=== PATIENT | female | born 1975 | race Caucasian/White ===

== ENCOUNTER 2017-08-28 06:22 | Day surgery (SDC) | payer OTHER ==
--- NOTE | 2017-08-28 06:38 | C.PDOC ---
History Of Present Illness pt presents with rlq , right pelvic pain worsening over the lst few days. No f/c /n/v. sharp, stabbing pain. Tolerating po Time Seen by Provider: 08/28/17 06:37 Chief Complaint (Nursing): Abdominal Pain History Per: Patient History/Exam Limitations: no limitations Onset/Duration Of Symptoms: Days Current Symptoms Are (Timing): Still Present Context: Other Severity: Moderate Pain Scale Rating Of: 4 Location Of Pain/Discomfort: RLQ, Suprapubic Radiation Of Pain To:: None Quality Of Discomfort: Sharp, Aching, Pressure Associated Symptoms: denies: Fever, Chills, Nausea Exacerbating Factors: Movement Alleviating Factors: None Last Bowel Movement: Yesterday Recent travel outside of the [place]: No Additional History Per: Patient Abnormal Vaginal Bleeding: No Past Medical History Reviewed: Historical Data, Nursing Documentation, Vital Signs - Medical History PMH: Denies: Chronic Kidney Disease Surgical History: No Surg Hx - [facility] INJECT/INFUSE NEC (02/22/14) SUTURE OF MOUTH LAC NEC (04/21/14) Family History: States: No Known Family Hx Review Of Systems Constitutional: Negative for: Fever, Chills ENT: Negative for: Throat Pain Cardiovascular: Negative for: Chest Pain Respiratory: Negative for: Shortness of Breath Gastrointestinal: Positive for: Abdominal Pain (rlq). Negative for: Nausea, Vomiting Genitourinary: Negative for: Vaginal Bleeding Musculoskeletal: Negative for: Back Pain Skin: Negative for: Rash Neurological: Negative for: Weakness Psych: Negative for: Anxiety Physical Exam - Physical Exam Appears: Non-toxic Skin: Warm, Dry Head: Normacephalic Eye(s): bilateral: Normal Inspection Oral Mucosa: Moist Throat: No Erythema Neck: Supple Chest: Symmetrical Cardiovascular: Rhythm Regular Respiratory: No Rales, No Rhonchi Gastrointestinal/Abdominal: Soft, Tenderness (rlq), No Guarding, No Rebound, Other (right suprapubic) Extremity: Normal ROM Extremity: Bilateral: Atraumatic Neurological/Psych: Oriented x3 Gait: Steady ED Course And Treatment O2 Sat by Pulse Oximetry: 99 Pulse Ox Interpretation: Normal Disposition Discussed With : Peter Art Comment: accepted the pt on her service and took over the care at 6:49AM Doctor Will See Patient In The: Hospital Counseled Patient/Family Regarding: Studies Performed, Diagnosis - Disposition Referrals: Peter Art MD [Primary Care Provider] - Disposition: HOSPITALIZED Disposition Time: 06:37 Condition: FAIR Forms: [facility] ([place]i) - POA Present On Arrival: None - Clinical Impression Clinical Impression: Abdominal pain in female patient, Pelvic pain Decision To Admit - Pt Status Changed To: Hospital Disposition Of: Inpatient - Admit Certification Admit to Inpatient:: After my assessment, the patient will require hospitalization for at least two midnights. This is because of the severity of symptoms shown, intensity of services needed, and/or the medical risk in this patient being treated as an outpatient. - InPatient: Physician Admission Certification:: After my assessment, the patient will require hospitalization for at least two midnights. This is because of the severity of symptoms shown, intensity of services needed, and/or the medical risk in this patient being treated as an outpatient. - . Bed Request Type: Regular Admitting Physician: Peter Art Patient Diagnosis: Abdominal pain in female patient, Pelvic pain
[2017-08-28] MEDS ORDERED: Sodium Chloride 0.9% 1,000 ML IV ONE (06:40)
[2017-08-28 06:56] LABS: SQUAMOUS EPITHIAL 2 /hpf (0-5); URINE BILIRUBIN NEGATIVE (NEGATIVE); URINE BLOOD NEGATIVE (NEGATIVE); URINE CLARITY Clear (Clear); URINE COLOR Yellow (YELLOW); URINE GLUCOSE (UA) NORMAL (Normal); URINE LEUKOCYTE ESTERASE NEG Leu/uL (Negative); URINE NITRATE NEGATIVE (NEGATIVE); URINE PROTEIN NEGATIVE (NEGATIVE)
[2017-08-28 07:15] LABS: BASO % 0.4 % (0.0-2.0); EOS # 0.1 K/uL (0.0-0.7); EOS % 1.2 % (0.0-4.0); HEMOGLOBIN 13.8 g/dL (11.0-16.0); LYMPH # 2.4 K/uL (1.0-4.3); LYMPH % 31.6 % (20.0-40.0); MEAN CELL VOLUME 93.3 fL (81.0-99.0); MEAN CORPUSCULAR HEMOGLOBIN 33.2 pg (27.0-31.0); MEAN CORPUSCULAR HGB CONC 35.6 g/dL (33.0-37.0); MEAN PLATELET VOLUME 8.2 fL (7.2-11.7); MONO # 0.5 K/uL (0.0-0.8); MONO % 6.2 % (0.0-10.0); NEUT # 4.7 K/uL (1.8-7.0); NEUT % 60.6 % (50.0-75.0); NRBC % 0.2 % (0.0-2.0); RBC 4.16 Mil/uL (3.80-5.20); RED CELL DISTRIBUTION WIDTH 12.2 % (11.5-14.5); WHITE BLOOD COUNT 7.8 K/uL (4.8-10.8)
[2017-08-28 07:17] LABS: PROTHROMBIN TIME 10.6 SECONDS (9.7-12.2)
[2017-08-28 07:17] LABS: HCG,QUALITATIVE URINE NEGATIVE (NEGATIVE)
[2017-08-28 07:29] LABS: ALB/GLOB RATIO 1.4 (1.0-2.1); ALBUMIN 4.3 g/dL (3.5-5.0); ALT/SGPT 23 U/L (9-52); AST/SGOT 30 U/L (14-36); BLOOD UREA NITROGEN 16 mg/dL (7-17); CALCIUM 9.4 mg/dl (8.6-10.4); GFR AFRICAN-AMERICAN > 60; GFR NON-AFRICAN AMERICAN > 60; LIPASE 110 U/L (23-300)
[2017-08-28] MEDS ORDERED: Sodium Chloride 0.9% 1,000 ML ONE (07:47)
[2017-08-28] MEDS ORDERED: cefOXitin IV 2 gm in Dextrose 2 GM/50 ML BAG IVPB ONE (08:14)
--- NOTE | 2017-08-28 08:21 | CP.PCM.HP ---
History of Present Illness - History of Present Illness History of Present Illness: History and Physical for Dr. Art CC: Abdominal pain HPI: 42 yo F with PMH of ovarian cysts who presents complaining of right sided pelvic pain. Pain first started 3 weeks ago, intermittent. Pain started again yesterday afternoon and has been constant, 9-10/10 in severity since the onset, sharp and stabbing in character. Pain radiates to back and epigastrum. She tried OTC analgesics which did not help. No particular exacerbating factors. She denies fever, chills, chest pain, shortness of breath , nausea, vomiting, vaginal bleeding, dysuria, hematuria. Remainder of 12 point ROS was obtained and was negative except as above. PMH: Ovarian cysts PSH: Open appendectomy, right foot surgery Home meds: None Social history: Denies tobacco, alcohol, or illicits. Lives at home with her son and . 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 All: [facility] OB Hx: 1995, , 40 weeks, boy, healthy, no complications in Present on Admission - Present on Admission Any Indicators Present on Admission: No Past Patient History - Infectious Disease Hx of Infectious Diseases: None - Past Social History Smoking Status: Never Smoked - CARDIAC Hx Cardiac Disorders: No - PULMONARY Hx Respiratory Disorders: No - NEUROLOGICAL Hx Neurological Disorder: No - HEENT Hx HEENT Problems: No - RENAL Hx Chronic Kidney Disease: No - ENDOCRINE/METABOLIC Hx Endocrine Disorders: No - GENITOURINARY/GYNECOLOGICAL Hx Genitourinary Disorders: Yes Other/Comment: RT OVARIAN CYST - PSYCHIATRIC Hx Substance Use: No - SURGICAL HISTORY Hx Appendectomy: Yes - ANESTHESIA Hx Anesthesia: Yes Hx Anesthesia Reactions: No Meds Allergies/Adverse Reactions: Allergies Allergy/AdvReac Type Severity Reaction Status Date / Time No Known Allergies Allergy Verified 08/28/17 06:33 Physical Exam - Constitutional Appears: Non-toxic, In Acute Distress (mild) - Head Exam Head Exam: ATRAUMATIC, NORMOCEPHALIC - Eye Exam Eye Exam: EOMI, Normal appearance, PERRL - ENT Exam ENT Exam: Mucous Membranes Moist - Neck Exam Neck exam: Positive for: Normal Inspection - Respiratory Exam Respiratory Exam: Clear to Auscultation Bilateral, NORMAL BREATHING PATTERN - Cardiovascular Exam Cardiovascular Exam: RRR, +S1, +S2 - GI/Abdominal Exam GI & Abdominal Exam: Normal Bowel Sounds, Soft, Tenderness (Right pelvic tenderness) - Extremities Exam Extremities exam: Positive for: normal inspection. Negative for: calf tenderness, pedal edema - Back Exam Back exam: absent: CVA tenderness (L), CVA tenderness (R) - Neurological Exam Neurological exam: Alert, Oriented x3 - Psychiatric Exam Psychiatric exam: Normal Affect, Normal Mood - Skin Skin Exam: Dry, Intact, Normal Color Results - Vital Signs Recent Vital Signs: Last Vital Signs Temp 98.7 F 08/28/17 06:35 Pulse 82 08/28/17 06:35 Resp 18 08/28/17 06:35 BP 105/73 08/28/17 06:35 Pulse Ox 99 08/28/17 06:50 - Labs Result Diagrams: 08/28/17 07:01 08/28/17 07:01 Labs: Laboratory Results - last 24 hr 08/28/17 08/28/17 08/28/17 06:46 07:01 07:01 WBC 7.8 RBC 4.16 Hgb 13.8 Hct 38.8 MCV 93.3 MCH 33.2 H MCHC 35.6 RDW 12.2 Plt Count 252 MPV 8.2 Neut % (Auto) 60.6 Lymph % (Auto) 31.6 [place] % (Auto) 6.2 Eos % (Auto) 1.2 Baso % (Auto) 0.4 Neut # (Auto) 4.7 Lymph # (Auto) 2.4 [place] # (Auto) 0.5 Eos # (Auto) 0.1 Baso # (Auto) 0.0 PT 10.6 INR 1.0 APTT 27 Sodium Potassium Chloride Carbon Dioxide Anion Gap BUN Creatinine Est GFR ( Amer) Est GFR (Non-Af Amer) Random Glucose Calcium Total Bilirubin AST ALT Alkaline Phosphatase Total Protein Albumin Globulin Albumin/Globulin Ratio Lipase Urine Color Yellow Urine Clarity Clear Urine pH 6.0 Ur Specific [place] 1.026 Urine Protein Negative Urine Glucose (UA) Normal Urine Ketones Negative Urine Blood Negative Urine Nitrate Negative Urine Bilirubin Negative Urine Urobilinogen 4.0 H Ur Leukocyte Esterase Neg Urine WBC (Auto) < 1 Urine RBC (Auto) 1 Ur Squamous Epith Cells 2 Urine HCG, Qual Negative 08/28/17 07:01 WBC RBC Hgb Hct MCV MCH MCHC RDW Plt Count MPV Neut % (Auto) Lymph % (Auto) [place] % (Auto) Eos % (Auto) Baso % (Auto) Neut # (Auto) Lymph # (Auto) [place] # (Auto) Eos # (Auto) Baso # (Auto) PT INR APTT Sodium 137 Potassium 3.9 Chloride 100 Carbon Dioxide 26 Anion Gap 15 BUN 16 Creatinine 0.6 L Est GFR ( Amer) > 60 Est GFR (Non-Af Amer) > 60 Random Glucose 96 Calcium 9.4 Total Bilirubin 0.5 AST 30 ALT 23 Alkaline Phosphatase 43 Total Protein 7.4 Albumin 4.3 Globulin 3.1 Albumin/Globulin Ratio 1.4 Lipase 110 Urine Color Urine Clarity Urine pH Ur Specific [place] Urine Protein Urine Glucose (UA) Urine Ketones Urine Blood Urine Nitrate Urine Bilirubin Urine Urobilinogen Ur Leukocyte Esterase Urine WBC (Auto) Urine RBC (Auto) Ur Squamous Epith Cells Urine HCG, Qual Assessment & Plan - Assessment and Plan (Free Text) Assessment: 42 yo F with history of open appendectomy and ovarian cysts presents complaining of severe right pelvic pain. Possible ruptured ovarian cyst. Plan Admit to unit Plan for exploratory laparoscopy; possible right ovarian cystectomy; possible right salpingo-oophorectomy Type and screen Pain control NPO Ordered Mefoxin 2gm IV once preoperatively Continue IVF Plan discussed with Dr. Art
[2017-08-28] MEDS ORDERED: HYDROmorphone 1 mg/ml ISec IVP ONE (08:27)
[2017-08-28] MEDS ORDERED: cefOXitin 2 GM in Sodium Chloride 0.9% 100 ML IVPB ONE (08:45)
[2017-08-28] MEDS ORDERED: Propofol 10 mg/ml Inj (20 ML) ONE (10:03)
[2017-08-28] MEDS ORDERED: Midazolam 2 MG/2 ML VIAL ONE (10:03)
[2017-08-28] MEDS ORDERED: ISOSULFAN BLUE 10 MG/ML ML SC ONE (10:50)
[2017-08-28] MEDS ORDERED: Neostigmine Methylsulfate 3mg/3ml Syringe IV ONE (11:19)
--- NOTE | 2017-08-28 12:14 | PCM.SURG1 ---
Surgeon's Initial Post Op Note - Surgeon's Notes Surgeon: dr [place]ide [place] Editor: dr belcher Type of Anesthesia: General LMA Anesthesia Administered By: dr francis Pre-Operative Diagnosis: 42 yr with acute pelvic pain /right ovarian cyst Operative Findings: see the op reort Post-Operative Diagnosis: same Operation Performed: laproscopic right ovarian cystectomy/laprscopic chromotabation Specimen/Specimens Removed: right ovarian cyst wakk. pelvic washing Estimated Blood Loss: EBL {In ML}: 20 Blood Products Given: N/A Drains Used: No Drains Post-Op Condition: Good Date of Surgery/Procedure: 08/28/17 Time of Surgery/Procedure: 11:00
[2017-08-28] MEDS: HYDROmorphone 0.5 mg/0.5 ml ISec IVP PRN ×2 (12:16→12:48)
[2017-08-28 12:25] VITALS: O2SAT 100
[2017-08-28] MEDS ORDERED: Lactated Ringer's 1,000 ML IV ONE (13:15)
[2017-08-28 14:43] VITALS: BP 90/60; PULSE 60; RESP 18; TEMP 98
--- NOTE | 2017-08-29 20:16 | CARD ---
APPROVED REPORT EKG Measurement Heart [id number] <Conclusion> Normal sinus rhythm Normal ECG
--- NOTE | 2017-09-01 07:05 | OP ---
PROCEDURE DATE: PREOPERATIVE DIAGNOSES: A 42 years old 1, para 1 comes in with acute pelvic pain on the right side, she has a history of right ovarian cyst. POSTOPERATIVE DIAGNOSES: A 42-year-old 1, para 1, comes in with acute pelvic pain on the right side, she has a history of right ovarian cyst and adhesions. SURGEON: Peter Art MD BUSHEL GIRL SURGEON: Henry Horan MD, who was present throughout the surgery with retraction, pushing and helping with the laparoscopy. COMPLICATIONS: None. PROCEDURE PERFORMED: Right diagnostic laparoscopy, right ovarian cystectomy, and of the tubes. ANESTHESIA: General anesthesia. ANESTHESIOLOGIST: . DESCRIPTION OF PROCEDURE: After informed consent was obtained, the patient was brought to the operating room, placed on the table where general anesthesia was given. Once the anesthesia was found to be adequate, she was prepped and draped in the normal sterile fashion. A C[place]rena catheter was inserted under sterile condition. Uterus was examined. It was found to be relatively 6 weeks' old. No pelvic or adnexal masses. The anterior lip of the cervix was grasped with a tenaculum and gentle dilatation of the cervix was done. Then the HUMI catheter was inserted for manipulation of the uterus. After that attention was turned towards the patient's abdomen. At the site of the umbilicus and the lower uterine segment, incision was made with a knife intraabdominal placement was confirmed with the gas and the fascia at the umbilicus was tied with 2-0 Vicryl. After that, two 5-mm ports were placed on the left and the right side. After that it looked like the peritoneum was the tube on the left side was very adherent, a cyst on the right side was there and some blood in there which may be . After that, the decision was to do the right ovarian cystectomy. It looks like a simple cyst after that. The ovary was held with a on one side and cystectomy was performed on the other side using a LigaSure. The fluid of the pelvic washings was sent before that and the cyst was removed using the LigaSure, two were sent to Pathology. After that, the site of the ovary which was bleeding, we used a LigaSure to stop the bleeding after that. Because the tube on the left side was very adherent with the left side where the tube was blocked and the right side was open after that. Lot of irrigation was done and found to be hemostatic and the FloSeal was used, it was hemostatic, no bleeding and then all the ports were removed, the gas was removed. The fascia at the site of the umbilicus was closed using 2-0 Vicryl, skin was closed with 4-0 Monocryl. HUMI was removed, catheter was removed. The patient was sent home on Percocet and Motrin. Follow up with Dr. Art in 10 days. Peter Art MD
== END 2017-08-28 16:34 | disposition home or self-care (01) ==
LOC: C.ER 06:22 → SUPCPDRO 06:22 → C.9E 06:51 → UNDOADMIN 06:51 → C.SDS 06:51 → C.9S 12:20 → C.9E 12:20 → UNDODISIN 16:34 → C.SDS 16:34 → C.9S 08-31 10:42 → C.9E 08-31 10:42
PROVIDERS: ATTEND Obstetrics & Gynecology
DX: N83.291 Other ovarian cyst, right side (principal); N83.8 Other noninflammatory disorders of ovary, fallopian tube and broad ligament
CPT/HCPCS: 58120; 58350; 58662; 80053; 81001; 83690; 84703; 85025; 85610; 85730; 88104; 88305; 93005; 96365; 96375; 99285; C1713; C2615; J0694; J1170; J1885; J2250; J2405; J2704; J2710; J3010; J7040; J7120